=== PATIENT | female | born 1980 | race Caucasian/White ===

== ENCOUNTER 2017-09-03 14:56 | Emergency (ER) | payer OTHER ==
[~2017-09-03] VITALS: Ht 167.6 cm; Wt 130.5 kg
[2017-09-03] MEDS ORDERED: EPIPEN ADU0.3 MG/0.3 IM (15:31)
[2017-09-03 18:47] VITALS: BP 145/89
== END 2017-09-03 18:47 | disposition home or self-care (01) ==
LOC: EME 14:56
DX: T78.1XXA Other adverse food reactions, not elsewhere classified, initial encounter (principal); R06.02 Shortness of breath; R20.0 Anesthesia of skin; Z91.010 Allergy to peanuts; N92.0 Excessive and frequent menstruation with regular cycle; G43.909 Migraine, unspecified, not intractable, without status migrainosus
CPT/HCPCS: 99281; 99284; J7030; S0028